=== PATIENT | female | born 1995 | race Caucasian/White ===

== ENCOUNTER 2022-04-14 15:15 | Emergency (ER) | payer SELFPAY ==
[2022-04-14 16:13] LABS: ANION GAP 15.5 mEq/L (7-13); CHLORIDE,CL 104 mmol/L (98-107); SODIUM,NA 140 mmol/L (136-145)
[2022-04-14 16:18] LABS: ACETAMINOPHEN 0 ug/mL (10-30 (Therapeutic)); ESTIMATED GFR 107 mL/min (>=60)
[2022-04-14 16:32] LABS: MDMA (ECSTASY), URINE NEGATIVE (NEGATIVE); METHADONE,URINE NEGATIVE (NEGATIVE); METHAMPHETAMINES,URINE NEGATIVE (NEGATIVE)
[2022-04-14 16:33] LABS: AMPHETAMINES,URINE NEGATIVE (NEGATIVE); BARBITURATES,URINE NEGATIVE (NEGATIVE); BENZODIAZEPINE,URINE NEGATIVE (NEGATIVE); OPIATES,URINE POSITIVE (NEGATIVE); OXYCODONE,URINE NEGATIVE (NEGATIVE); PHENCYCLIDINE,URINE NEGATIVE (NEGATIVE); TCA,URINE NEGATIVE (NEGATIVE)
== END 2022-04-14 17:35 | disposition home or self-care (01) ==
LOC: DL.ED 15:15
DX: T14.91XA Suicide attempt, initial encounter (principal)
CPT/HCPCS: 36415; 80053; 80143; 80179; 80305-QW; 80307; 81003; 83690; 83735; 84443; 85025; 93005; 93010; 99283; 99285; C1758